=== PATIENT | male | born 1985 | race Caucasian/White ===

== ENCOUNTER 2017-12-23 18:09 | Emergency (ER) | payer OTHER ==
[~2017-12-23] VITALS: Ht 175.3 cm; Wt 145.2 kg
[~2017-12-23 18:09] MED LIST: ? BP MED; ALBU90OI INH; ANXIETY MED; Augmentin 875-1 EACH PO; BP MED; CEPH500 PO; CRUTCH3 USE; CYCL10 PO; DIPATR PO; DOXY100 PO; DULO60 PO; FENT50TP TOP; FLUO20; GABA100 PO; HYDACE25S PR; HYDACE5 PO; HYDACE5325 PO; HYDGUAL120 PO; HYDHCL25 PO; HYDMOR2 PO; HYOS.125 SL; IBU PRN ONLY; IBUP200 PO; IBUP400; IBUP800 PO; KETO10; KETO10 PO; LITH300ER PO; LORA.5 PO; LORA2 PO; MECL25 PO; MELA3 PO; METO100ER PO; METO25ER PO; METO50 PO; METR500 PO; MUSCLE RELAXER; NAPR250 PO; NAPR500; NAPR500 PO; NAPR550 PO; OMEP20ER PO; OMEP40CA12 PO; ONDA4 PO; OXYACE5T; OXYACE5T PO; OXYC10ER PO; OXYC5 PO; PARO30 PO; RANI150 PO; RISP.5 PO; RXCYCL10 PO; RXHYDGUAS PO; RXLORA1 PO; RXNAPNA550 PO; RXOXYACE PO; RXTRAM50 PO; SENNP PO; SULTRIDS PO; TOPROL PO; TRAM50 PO; TRAZ50 PO; Zofran4 MG PO; [UNRECOGNIZED DRUG - REMARK]
[2017-12-23] MEDS ORDERED: METO25ER PO (18:26)
[2017-12-23 18:50] LABS: BASOPHILS ABSOLUTE AUTO 0.02 K/mm3 (0.00-0.23); BASOPHILS PERCENT AUTO 0 % (0-2); EOSINOPHILS ABSOLUTE AUTO 0.11 K/mm3 (0.00-0.68); EOSINOPHILS PERCENT AUTO 1 % (0-6); Hematocrit 46.6 % (37.0-53.0); Hemoglobin 15.4 g/dL (13.5-17.5); IMMATURE GRAN ABSOLUTE AUTO 0.02 K/mm3 (0.00-0.10); IMMATURE GRAN PERCENT AUTO 0 % (0-1); LYMPHOCYTES ABSOLUTE AUTO 2.41 K/mm3 (0.84-5.20); LYMPHOCYTES PERCENT AUTO 27 % (21-46); MONOCYTES ABSOLUTE AUTO 0.59 K/mm3 (0.16-1.47); MONOCYTES PERCENT AUTO 7 % (4-13); Mean Corpuscular Volume 82 fL (80-100); Mean Platelet Volume 9.8 fL (9.1-12.4); NEUTROPHILS ABSOLUTE AUTO 5.71 K/mm3 (1.96-9.15); NEUTROPHILS PERCENT AUTO 65 % (41-73); Platelet Count 301 K/mm3 (150-400); RDW Standard Deviation 38.5 fL (35.1-46.3); Red Blood Cell Count 5.71 M/mm3 (4.30-5.90); White Blood Cell Count 8.86 K/mm3 (4.00-11.30)
[2017-12-23 19:14] LABS: Alanine Aminotransfer (ALT/SGP 43 U/L (12-78); Alk Phos 64 U/L (50-136); Anion Gap 10 mmol/L (6-16); Aspartate Aminotrans (AST/SGOT 39 U/L (12-37); Bilirubin, Total 0.5 mg/dL (0.1-1.0); Blood Urea Nitrogen 21 mg/dL (8-24); Bun/Creatinine Ratio 23.4 (12.0-20.0); CO2, Blood 26 mmol/L (21-32); Chloride, Blood 105 mmol/L (98-108); Globulin, Blood 4.1 g/dL (2.2-4.0); Glomerular Filtration Rate >60 (60-); Glucose, Blood 71 mg/dL (70-99); Potassium, Blood 3.8 mmol/L (3.5-5.5); Sodium, Blood 141 mmol/L (136-145); Total Protein, Blood 8.1 g/dL (6.4-8.2); Troponin I <0.015 ng/mL (0.000-0.040)
[2017-12-23] MEDS ORDERED: Robaxin500 MG PO (19:22)
[2017-12-23] MEDS ORDERED: Voltaren100 GM TOP (19:22)
[2017-12-23] MEDS ORDERED: NAPR550 PO (19:22)
[2018-06-06] MEDS ORDERED: ALBU90OI61 (09:25)
[2018-06-06] MEDS ORDERED: IBUP800 (09:26)
[2018-06-06] MEDS ORDERED: CLON1 (09:26)
[2018-06-06] MEDS ORDERED: OXYB5 PO (09:26)
[2018-06-06] MEDS ORDERED: HYDHCL25 (09:26)
[2018-06-06] MEDS ORDERED: VENL37.5ER (09:26)
[2018-06-06] MEDS ORDERED: METPRE4 (09:26)
== END 2017-12-23 19:33 | disposition home or self-care (01) ==
LOC: ER 18:09
PROVIDERS: Physician Assistant
DX: M54.6 Pain in thoracic spine (principal); Z88.5 Allergy status to narcotic agent; Z88.8 Allergy status to other drugs, medicaments and biological substances; Z79.899 Other long term (current) drug therapy; Z79.2 Long term (current) use of antibiotics; I10 Essential (primary) hypertension
CPT/HCPCS: 36415; 71046; 80053; 84484; 85025; 93005; 93010; 96374; 99284; J1885

== ENCOUNTER 2018-04-29 20:33 | Emergency (ER) | payer OTHER ==
[~2018-04-29] VITALS: Ht 175.3 cm; Wt 131.5 kg
[~2018-04-29 20:33] MED LIST changes: +Robaxin500 MG PO; +Voltaren100 GM TOP
[2018-04-29] MEDS ORDERED: Triamcinolone A15 G3 TOP (21:02)
== END 2018-04-29 21:06 | disposition home or self-care (01) ==
LOC: ER 20:33
DX: L25.9 Unspecified contact dermatitis, unspecified cause (principal); Z88.5 Allergy status to narcotic agent; Z88.8 Allergy status to other drugs, medicaments and biological substances; Z79.899 Other long term (current) drug therapy; I10 Essential (primary) hypertension
CPT/HCPCS: 99282

== ENCOUNTER 2018-06-14 08:04 | Day surgery (SDC) | payer OTHER ==
[~2018-06-14 08:04] MED LIST changes: +ALBU90OI61; +CLON1; +HYDHCL25; +IBUP800; +METPRE4; +OXYB5 PO; +Triamcinolone A15 G3 TOP; +VENL37.5ER
== END 2018-06-14 10:57 | disposition home or self-care (01) ==
LOC: ORSCSDS 08:04
PROVIDERS: Internal Medicine Gastroenterology
PROC: 0DBM8ZX Excision of Descending Colon, Via Natural or Artificial Opening Endoscopic, Diagnostic (ICD-10-PCS; principal; 2018-06-14 09:30)
PROC: 0DBE8ZX Excision of Large Intestine, Via Natural or Artificial Opening Endoscopic, Diagnostic (ICD-10-PCS; principal; 2018-06-14 09:30)
DX: K62.5 Hemorrhage of anus and rectum (principal); R19.7 Diarrhea, unspecified; D12.4 Benign neoplasm of descending colon; I10 Essential (primary) hypertension; G47.33 Obstructive sleep apnea (adult) (pediatric); J45.909 Unspecified asthma, uncomplicated; Z79.899 Other long term (current) drug therapy
CPT/HCPCS: J2370

== ENCOUNTER → 2019-05-13 | Outpatient (CLI) | payer OTHER ==
[2019-05-13 13:45] LABS: BASOPHILS ABSOLUTE AUTO 0.03 K/mm3 (0.00-0.23); BASOPHILS PERCENT AUTO 0 % (0-2); EOSINOPHILS ABSOLUTE AUTO 0.26 K/mm3 (0.00-0.68); EOSINOPHILS PERCENT AUTO 4 % (0-6); Hematocrit 45.4 % (37.0-53.0); Hemoglobin 15.3 g/dL (13.5-17.5); IMMATURE GRAN ABSOLUTE AUTO 0.02 K/mm3 (0.00-0.10); IMMATURE GRAN PERCENT AUTO 0 % (0-1); LYMPHOCYTES ABSOLUTE AUTO 2.16 K/mm3 (0.84-5.20); LYMPHOCYTES PERCENT AUTO 31 % (21-46); MONOCYTES ABSOLUTE AUTO 0.61 K/mm3 (0.16-1.47); MONOCYTES PERCENT AUTO 9 % (4-13); Mean Corpuscular HGB 28.4 pg (26.0-34.0); Mean Corpuscular HGB Conc 33.7 g/dL (31.5-36.5); Mean Corpuscular Volume 84 fL (80-100); NEUTROPHILS ABSOLUTE AUTO 3.96 K/mm3 (1.96-9.15); NEUTROPHILS PERCENT AUTO 56 % (41-73); Platelet Count 302 K/mm3 (150-400); RDW Coefficient Variation 12.6 % (11.7-14.2); RDW Standard Deviation 38.3 fL (35.1-46.3); Red Blood Cell Count 5.38 M/mm3 (4.30-5.90); White Blood Cell Count 7.04 K/mm3 (4.00-11.30)
[2019-05-13 13:55] LABS: Alanine Aminotransfer (ALT/SGP 36 U/L (12-78); Albumin, Blood 3.9 g/dL (3.4-5.0); Alk Phos 63 U/L (50-136); Anion Gap 5 mmol/L (6-16); Aspartate Aminotrans (AST/SGOT 22 U/L (12-37); Bilirubin, Total 0.4 mg/dL (0.1-1.0); Blood Urea Nitrogen 17 mg/dL (8-24); Bun/Creatinine Ratio 19.1 (12.0-20.0); CO2, Blood 28 mmol/L (21-32); Calcium, Blood 8.8 mg/dL (8.5-10.1); Chloride, Blood 108 mmol/L (98-108); Creatinine, Blood 0.89 mg/dL (0.60-1.20); Glomerular Filtration Rate >60 (60-); Glucose, Blood 94 mg/dL (70-99); Sodium, Blood 141 mmol/L (136-145); Total Protein, Blood 7.9 g/dL (6.4-8.2)
== END | disposition home or self-care (01) ==
LOC: LAB 12:50 → LAB SHORT 12:50
PROVIDERS: Physician Assistant
DX: T67.3XXA Heat exhaustion, anhydrotic, initial encounter (principal); R11.10 Vomiting, unspecified
CPT/HCPCS: 80053; 85025

== ENCOUNTER → 2019-10-13 | Outpatient (CLI) | payer OTHER | LOC: LAB 11:13 → LAB SHORT 11:13 | DX: L02.11 Cutaneous abscess of neck (principal) | CPT/HCPCS: 87070; 87075; 87077; 87186; 87205 ==

== ENCOUNTER 2021-06-25 00:06 | Emergency (ER) | payer OTHER ==
[~2021-06-25] VITALS: Ht 175.3 cm; Wt 132.9 kg
[2021-06-25] MEDS ORDERED: BUPR75 PO (00:56)
[2021-06-25] MEDS ORDERED: BUSP5 PO (00:56)
[2021-06-25 01:06] LABS: BASOPHILS ABSOLUTE AUTO 0.04 K/mm3 (0.00-0.23); BASOPHILS PERCENT AUTO 1 % (0-2); EOSINOPHILS ABSOLUTE AUTO 0.27 K/mm3 (0.00-0.68); EOSINOPHILS PERCENT AUTO 3 % (0-6); Hemoglobin 14.6 g/dL (13.5-17.5); IMMATURE GRAN ABSOLUTE AUTO 0.02 K/mm3 (0.00-0.10); IMMATURE GRAN PERCENT AUTO 0 % (0-1); LYMPHOCYTES ABSOLUTE AUTO 2.16 K/mm3 (0.84-5.20); LYMPHOCYTES PERCENT AUTO 27 % (21-46); MONOCYTES ABSOLUTE AUTO 0.74 K/mm3 (0.16-1.47); MONOCYTES PERCENT AUTO 9 % (4-13); Mean Corpuscular HGB 27.4 pg (26.0-34.0); Mean Corpuscular HGB Conc 33.2 g/dL (31.5-36.5); Mean Corpuscular Volume 83 fL (80-100); Mean Platelet Volume 10.1 fL (9.1-12.4); NEUTROPHILS ABSOLUTE AUTO 4.76 K/mm3 (1.96-9.15); NEUTROPHILS PERCENT AUTO 60 % (41-73); Platelet Count 268 K/mm3 (150-400); RDW Coefficient Variation 13.1 % (11.7-14.2); RDW Standard Deviation 39.1 fL (35.1-46.3); Red Blood Cell Count 5.33 M/mm3 (4.30-5.90); White Blood Cell Count 7.99 K/mm3 (4.00-11.30)
[2021-06-25 01:18] LABS: Alanine Aminotransfer (ALT/SGP 37 U/L (12-78); Albumin, Blood 3.7 g/dL (3.4-5.0); Alk Phos 56 U/L (50-136); Anion Gap 5 mmol/L (6-16); Aspartate Aminotrans (AST/SGOT 21 U/L (12-37); Bilirubin, Total 0.3 mg/dL (0.1-1.0); Blood Urea Nitrogen 23 mg/dL (8-24); Bun/Creatinine Ratio 21.1 (12.0-20.0); CO2, Blood 27 mmol/L (21-32); Calcium, Blood 9.1 mg/dL (8.5-10.1); Chloride, Blood 109 mmol/L (98-108); Creatinine, Blood 1.09 mg/dL (0.60-1.20); Globulin, Blood 3.8 g/dL (2.2-4.0); Glomerular Filtration Rate >60 (60-); Glucose, Blood 119 mg/dL (70-99); Potassium, Blood 3.8 mmol/L (3.5-5.5); Sodium, Blood 141 mmol/L (136-145); Total Protein, Blood 7.5 g/dL (6.4-8.2)
== END 2021-06-25 02:13 | disposition home or self-care (01) ==
LOC: ER 00:06
PROVIDERS: Emergency Medicine
DX: R10.10 Upper abdominal pain, unspecified (principal); I10 Essential (primary) hypertension; Z79.899 Other long term (current) drug therapy
CPT/HCPCS: 80053; 83690; 85025; 96374; 96376; 99283-25; A9270; J2405; J7120

== ENCOUNTER 2021-06-26 15:12 | Inpatient (IN) | payer OTHER ==
[~2021-06-26] VITALS: Ht 177.8 cm; Wt 131.9 kg
[~2021-06-26 15:12] MED LIST changes: +BUPR75 PO; +BUSP5 PO
[2021-06-26 15:35] LABS: Calcium, Ionized (POC) 1.24 mmol/L (1.10-1.46); Chloride (POC) 97 mmol/L (98-108); Creatinine (POC) 0.9 mg/dL (0.8-1.3); Glucose (ISTAT POC) 115 mg/dL (70-99); Hemoglobin (POC) 16.7 g/dL (13.5-17.5); Sodium (POC) 138 mmol/L (135-148); Total CO2 (POC) 27 mmol/L (21-32)
[2021-06-26 16:01] LABS: BASOPHILS ABSOLUTE AUTO 0.03 K/mm3 (0.00-0.23); BASOPHILS PERCENT AUTO 0 % (0-2); EOSINOPHILS ABSOLUTE AUTO 0.01 K/mm3 (0.00-0.68); EOSINOPHILS PERCENT AUTO 0 % (0-6); Hematocrit 46.4 % (37.0-53.0); Hemoglobin 15.8 g/dL (13.5-17.5); IMMATURE GRAN ABSOLUTE AUTO 0.06 K/mm3 (0.00-0.10); IMMATURE GRAN PERCENT AUTO 0 % (0-1); LYMPHOCYTES ABSOLUTE AUTO 1.52 K/mm3 (0.84-5.20); LYMPHOCYTES PERCENT AUTO 10 % (21-46); MONOCYTES ABSOLUTE AUTO 1.14 K/mm3 (0.16-1.47); MONOCYTES PERCENT AUTO 8 % (4-13); Mean Corpuscular HGB 27.6 pg (26.0-34.0); Mean Corpuscular HGB Conc 34.1 g/dL (31.5-36.5); Mean Corpuscular Volume 81 fL (80-100); Mean Platelet Volume 10.5 fL (9.1-12.4); NEUTROPHILS PERCENT AUTO 81 % (41-73); Platelet Count 286 K/mm3 (150-400); RDW Standard Deviation 38.2 fL (35.1-46.3); Red Blood Cell Count 5.72 M/mm3 (4.30-5.90); White Blood Cell Count 14.86 K/mm3 (4.00-11.30)
[2021-06-26 16:15] LABS: Albumin, Blood 3.8 g/dL (3.4-5.0); Albumin/Globulin Ratio 0.9 (0.8-1.8); Bilirubin, Direct 0.3 mg/dL (0.0-0.3); Bilirubin, Indirect 0.5 mg/dL (0.1-0.7); Bilirubin, Total 0.8 mg/dL (0.1-1.0); Globulin, Blood 4.1 g/dL (2.2-4.0); Total Protein, Blood 7.9 g/dL (6.4-8.2)
--- NOTE | 2021-06-26 20:43 | NUR ---
PT TRANSFERED FROM ER VIA WHEELCHAIR AT THIS TIME. A&O X4. ADMITTED FOR GERALDINE. PT INDEPENDENT IN ROOM. C/O ABD PAIN. DENIES N/V. WILL KEEP PT NPO PER ORDERS AND MEDICATE PER EMAR.
--- NOTE | 2021-06-27 07:27 | NUR ---
SHIFT SUMMARY: PT HAS BEEN STABLE SINCE ADMIT. PAIN BEING MANAGED WITH 50MCG OF FENTANYL PER EMAR. PT HAS BEEN NPO SINCE MIDNIGHT. IVF INFUSING PER ORDERS. PT DENIES N/V. INDEPENDENT IN ROOM AND VOIDING WELL. MED REC COMPELTE AND ALL HOME MEDS ORDERED.
--- NOTE | 2021-06-27 15:01 | NUR ---
TO DAY SURGERY VIA RGARIBALDI
--- NOTE | 2021-06-27 17:47 | NUR ---
REMAINS IN OR AT THIS TIME
--- NOTE | 2021-06-27 18:37 | NUR ---
returned to room, abd with gauze x4 sites, clean dry and intact. pt to restroom with standby assist, voided clear yellow urine. denies nausea. juarez po fluids
--- NOTE | 2021-06-28 05:18 | NUR ---
JS IS A&OX4. VSS, NO ACUTE EVENTS OVERNIGHT. HE IS INDEPENDENT IN THE ROOM, TOLERATING PO INTAKE WELL, AND REPORTS HAVING MULTIPLE LOOSE STOOLS OVERNIGHT. LAP SITES TO ABDOMEN C/D&I. HE REPORTS ADEQUATE PAIN CONTROL WITH ONE TABLET OF NORCO. HE IS LYING IN BED WITH THE CALL LIGHT IN REACH. WILL REPORT TO DAY SHIFT RN.
[2021-06-28 05:47] LABS: BASOPHILS ABSOLUTE AUTO 0.02 K/mm3 (0.00-0.23); BASOPHILS PERCENT AUTO 0 % (0-2); EOSINOPHILS PERCENT AUTO 0 % (0-6); Hematocrit 42.3 % (37.0-53.0); Hemoglobin 13.9 g/dL (13.5-17.5); IMMATURE GRAN ABSOLUTE AUTO 0.07 K/mm3 (0.00-0.10); IMMATURE GRAN PERCENT AUTO 1 % (0-1); LYMPHOCYTES ABSOLUTE AUTO 0.89 K/mm3 (0.84-5.20); LYMPHOCYTES PERCENT AUTO 6 % (21-46); MONOCYTES PERCENT AUTO 8 % (4-13); Mean Corpuscular HGB 27.7 pg (26.0-34.0); Mean Corpuscular HGB Conc 32.9 g/dL (31.5-36.5); Mean Corpuscular Volume 84 fL (80-100); Mean Platelet Volume 10.2 fL (9.1-12.4); NEUTROPHILS PERCENT AUTO 86 % (41-73); Platelet Count 204 K/mm3 (150-400); RDW Coefficient Variation 13.3 % (11.7-14.2); RDW Standard Deviation 41.2 fL (35.1-46.3); Red Blood Cell Count 5.02 M/mm3 (4.30-5.90); White Blood Cell Count 14.58 K/mm3 (4.00-11.30)
[2021-06-28 06:14] LABS: Alanine Aminotransfer (ALT/SGP 35 U/L (12-78); Albumin, Blood 2.6 g/dL (3.4-5.0); Albumin/Globulin Ratio 0.7 (0.8-1.8); Alk Phos 58 U/L (50-136); Anion Gap 6 mmol/L (6-16); Aspartate Aminotrans (AST/SGOT 24 U/L (12-37); Bilirubin, Total 0.9 mg/dL (0.1-1.0); Blood Urea Nitrogen 17 mg/dL (8-24); Bun/Creatinine Ratio 18.6 (12.0-20.0); CO2, Blood 28 mmol/L (21-32); Calcium, Blood 7.3 mg/dL (8.5-10.1); Chloride, Blood 104 mmol/L (98-108); Creatinine, Blood 0.91 mg/dL (0.60-1.20); Globulin, Blood 3.9 g/dL (2.2-4.0); Glomerular Filtration Rate >60 (60-); Glucose, Blood 122 mg/dL (70-99); Potassium, Blood 3.5 mmol/L (3.5-5.5); Sodium, Blood 138 mmol/L (136-145); Total Protein, Blood 6.5 g/dL (6.4-8.2)
[2021-06-28] MEDS ORDERED: HYDR1TAB94 PO (11:22)
--- NOTE | 2021-06-28 13:28 | NUR ---
DISCHARGE PT A/O X4, IND IN ROOM. PT ADVANCED TO REGULAR/GLUTEN FREE DIET FOR LUNCH AND TOLERATED WELL. DENIES N/V, REPORTS PASSING FLATUS AND BM'S. PAIN MANAGED ON PO PAIN MED PER ORDERS. DC INSTRUCTIONS REVIEWED WITH PT; REPORTS UNDERSTANDING. INSTRUCTIONS AND SCRIPTS SENT WITH PT. PERSONAL BELONGINGS RETURNED. IV DC'D WNL. PT ESCORTED TO VEHICLE VIA WHEELCHAIR.
--- NOTE | 2021-06-30 10:27 | NUR ---
06/30/21 1027 Anisha Brown VERIFICATIONS: EDIT CHART.
== END 2021-06-28 13:30 | disposition home or self-care (01) | DRG 419 ==
LOC: ER 15:12 → SURS 19:38 → ER 19:38 → SURS 19:38 → ER 06-28 09:16 → SURS 06-28 09:16
PROVIDERS: Emergency Medicine; Surgery; ADMIT Surgery
PROC: 0FT44ZZ Resection of Gallbladder, Percutaneous Endoscopic Approach (ICD-10-PCS; principal; 2021-06-28)
PROC: BF03YZZ Plain Radiography of Gallbladder and Bile Ducts using Other Contrast (ICD-10-PCS; principal; 2021-06-28)
DX: K80.00 Calculus of gallbladder with acute cholecystitis without obstruction (principal); K82.A1 Gangrene of gallbladder in cholecystitis; I10 Essential (primary) hypertension; K76.0 Fatty (change of) liver, not elsewhere classified; Z88.5 Allergy status to narcotic agent; Z88.8 Allergy status to other drugs, medicaments and biological substances
CPT/HCPCS: 36415; 74300; 76705; 80047; 80053; 80076; 83690; 85014; 85025; 88304; 94660; 94762; 96365; 96375; 99285-25; A9270; C1729; G0378; J1100; J1885; J2250; J2405; J2543; J2704; J3010; J7030; J7120

== ENCOUNTER 2021-06-29 18:50 | Inpatient (IN) | payer OTHER ==
[~2021-06-29] VITALS: Ht 175.3 cm; Wt 127.8 kg
[~2021-06-29 18:50] MED LIST changes: +HYDR1TAB94 PO
[2021-06-29 19:34] LABS: BASOPHILS ABSOLUTE AUTO 0.02 K/mm3 (0.00-0.23); BASOPHILS PERCENT AUTO 0 % (0-2); EOSINOPHILS ABSOLUTE AUTO 0.08 K/mm3 (0.00-0.68); EOSINOPHILS PERCENT AUTO 1 % (0-6); Hematocrit 42.2 % (37.0-53.0); Hemoglobin 14.2 g/dL (13.5-17.5); IMMATURE GRAN ABSOLUTE AUTO 0.03 K/mm3 (0.00-0.10); IMMATURE GRAN PERCENT AUTO 0 % (0-1); LYMPHOCYTES ABSOLUTE AUTO 1.72 K/mm3 (0.84-5.20); LYMPHOCYTES PERCENT AUTO 19 % (21-46); MONOCYTES ABSOLUTE AUTO 0.72 K/mm3 (0.16-1.47); MONOCYTES PERCENT AUTO 8 % (4-13); Mean Corpuscular HGB 27.7 pg (26.0-34.0); Mean Corpuscular HGB Conc 33.6 g/dL (31.5-36.5); Mean Corpuscular Volume 82 fL (80-100); Mean Platelet Volume 10.2 fL (9.1-12.4); NEUTROPHILS ABSOLUTE AUTO 6.68 K/mm3 (1.96-9.15); NEUTROPHILS PERCENT AUTO 72 % (41-73); Platelet Count 295 K/mm3 (150-400); RDW Coefficient Variation 13.2 % (11.7-14.2); RDW Standard Deviation 39.6 fL (35.1-46.3); Red Blood Cell Count 5.13 M/mm3 (4.30-5.90); White Blood Cell Count 9.25 K/mm3 (4.00-11.30)
[2021-06-29 19:51] LABS: Alanine Aminotransfer (ALT/SGP 48 U/L (12-78); Albumin, Blood 2.9 g/dL (3.4-5.0); Albumin/Globulin Ratio 0.6 (0.8-1.8); Alk Phos 61 U/L (50-136); Anion Gap 8 mmol/L (6-16); Aspartate Aminotrans (AST/SGOT 30 U/L (12-37); Bilirubin, Total 0.5 mg/dL (0.1-1.0); Blood Urea Nitrogen 18 mg/dL (8-24); Bun/Creatinine Ratio 20.3 (12.0-20.0); CO2, Blood 27 mmol/L (21-32); Calcium, Blood 8.5 mg/dL (8.5-10.1); Chloride, Blood 103 mmol/L (98-108); Creatinine, Blood 0.89 mg/dL (0.60-1.20); Globulin, Blood 4.5 g/dL (2.2-4.0); Glomerular Filtration Rate >60 (60-); Glucose, Blood 95 mg/dL (70-99); Potassium, Blood 3.2 mmol/L (3.5-5.5); Sodium, Blood 138 mmol/L (136-145); Total Protein, Blood 7.4 g/dL (6.4-8.2)
[2021-06-29 23:42] LABS: SARS-Cov-2 (COVID-19) PCR, MMC NEGATIVE (NEGATIVE)
--- NOTE | 2021-06-30 01:39 | NUR ---
PATIENT ADMIT 0045 PT BROUGHT BACK TO [facility] FROM ED VIA WHEELCHAIR.PT ORIENTED TO DEPARTMENT AND ROOM, SELF AMBULATED FROM CHAIR TO BATHROOM AND BED. VSS, BED LOW AND IN LOCKED POSITION,SIDE RAILS UP, CALL LIGHT WITHIN REACH. INCISION SITES ON ABDOMEN X4 DRY AND WITH INTACT STERIS. WILL ALLOW PT TO REST AND WILL CONTINUE TO MONITOR.
--- NOTE | 2021-06-30 05:38 | NUR ---
PT RESTING IN BED, VSS, HE REMAINED NPO THORUGHOUT THE EVENING. MOIST MOUTH SPONGE OFFERED IF NEEDED. PAIN WAS TOLERABLE FOR HIM. NO COMPLAINTS OF NAUSEA AT THIS TIME. WILL CONTINUE TO MONITOR, AND AT SHIFT CHANGE, WILL REPORT TO DAY SHIFT RN.
[2021-06-30 06:54] LABS: BASOPHILS ABSOLUTE AUTO 0.01 K/mm3 (0.00-0.23); BASOPHILS PERCENT AUTO 0 % (0-2); EOSINOPHILS ABSOLUTE AUTO 0.15 K/mm3 (0.00-0.68); EOSINOPHILS PERCENT AUTO 2 % (0-6); Hematocrit 37.5 % (37.0-53.0); Hemoglobin 12.6 g/dL (13.5-17.5); IMMATURE GRAN ABSOLUTE AUTO 0.01 K/mm3 (0.00-0.10); IMMATURE GRAN PERCENT AUTO 0 % (0-1); LYMPHOCYTES PERCENT AUTO 27 % (21-46); MONOCYTES ABSOLUTE AUTO 0.58 K/mm3 (0.16-1.47); MONOCYTES PERCENT AUTO 8 % (4-13); Mean Corpuscular HGB 28.1 pg (26.0-34.0); Mean Corpuscular HGB Conc 33.6 g/dL (31.5-36.5); Mean Corpuscular Volume 84 fL (80-100); Mean Platelet Volume 9.8 fL (9.1-12.4); NEUTROPHILS ABSOLUTE AUTO 4.33 K/mm3 (1.96-9.15); NEUTROPHILS PERCENT AUTO 62 % (41-73); Platelet Count 254 K/mm3 (150-400); RDW Coefficient Variation 13.3 % (11.7-14.2); RDW Standard Deviation 40.8 fL (35.1-46.3); Red Blood Cell Count 4.49 M/mm3 (4.30-5.90); White Blood Cell Count 6.98 K/mm3 (4.00-11.30)
--- NOTE | 2021-06-30 07:03 | NUR ---
PT WITH C/O PAIN 05/10 IN THE ABDOMEN. NO NAUSEA. I TEXT , HAVE NOT GOTTEN AN ORDER YET, NOTIFIED HIM PT DOES NOT WANT DILAUDID. WE ARE AT SHIFT CHANGE, AND I GAVE REPORT TO RAFAEL GOODEN.NITA. I NOTIFIED DR OF CHANGE OF CARE AND REPORTED TO DAY SHIFT.
[2021-06-30 07:11] LABS: Anion Gap 4 mmol/L (6-16); Blood Urea Nitrogen 16 mg/dL (8-24); Bun/Creatinine Ratio 20.1 (12.0-20.0); CO2, Blood 30 mmol/L (21-32); Calcium, Blood 7.8 mg/dL (8.5-10.1); Chloride, Blood 104 mmol/L (98-108); Glomerular Filtration Rate >60 (60-); Glucose, Blood 89 mg/dL (70-99); Sodium, Blood 138 mmol/L (136-145)
--- NOTE | 2021-06-30 09:19 | NUR ---
JOSE ELIAS LR 1,000ML BAG. PT STATES THAT THE ZOFRAN HELPED WITH HIS NAUSEA. PT STILL AWARE PENDING SURGICAL CONSULT.
--- NOTE | 2021-06-30 11:39 | NUR ---
OFFERED PT NORCO 5/325MG ORDERED PER DR PAIN IS 06/10. PT DECLINED AT THIS TIME.
--- NOTE | 2021-07-01 05:01 | NUR ---
PT SLEPT WELL AFTER PAIN MEDICATION AND EYE MASK PROVIDED, HOME MEDS WERE ORDERED BY PIECE WORK CHECKER GENERAL SURGEON GIVEN PO. PT DID NOT HAVE C/O NAUSEA, TOOK PO FLUIDS WELL, URINATING WELL, IV DRESSING CHANGED, IV NACL LOCKED. BOWEL SOUNDS AUSCULTATED LOWER QUADRANTS BUT NOT UPPER. NO ORDERS FROM ADMITTING SURGEON DR. CHIN.WILL AWAIT MORNING LAB RESULTS ON K+ AND CONSULT WITH IF IV FLUIDS LR STILL NEEDED.NOTE:PT RECIEVED POTASSIUM X2 FOR LEVEL OF 3.0 06/30 WILL REPORT TO DAY SHIFT RN AND AWAIT FURTHER ORDERS FROM .
[2021-07-01 06:54] LABS: BASOPHILS ABSOLUTE AUTO 0.02 K/mm3 (0.00-0.23); BASOPHILS PERCENT AUTO 0 % (0-2); EOSINOPHILS ABSOLUTE AUTO 0.27 K/mm3 (0.00-0.68); EOSINOPHILS PERCENT AUTO 4 % (0-6); Hematocrit 40.3 % (37.0-53.0); Hemoglobin 13.6 g/dL (13.5-17.5); IMMATURE GRAN ABSOLUTE AUTO 0.03 K/mm3 (0.00-0.10); IMMATURE GRAN PERCENT AUTO 0 % (0-1); LYMPHOCYTES ABSOLUTE AUTO 1.39 K/mm3 (0.84-5.20); LYMPHOCYTES PERCENT AUTO 20 % (21-46); MONOCYTES ABSOLUTE AUTO 0.55 K/mm3 (0.16-1.47); MONOCYTES PERCENT AUTO 8 % (4-13); Mean Corpuscular HGB 27.8 pg (26.0-34.0); Mean Corpuscular HGB Conc 33.7 g/dL (31.5-36.5); Mean Corpuscular Volume 82 fL (80-100); Mean Platelet Volume 9.7 fL (9.1-12.4); NEUTROPHILS ABSOLUTE AUTO 4.58 K/mm3 (1.96-9.15); NEUTROPHILS PERCENT AUTO 67 % (41-73); Platelet Count 290 K/mm3 (150-400); RDW Coefficient Variation 13.2 % (11.7-14.2); RDW Standard Deviation 39.6 fL (35.1-46.3); White Blood Cell Count 6.84 K/mm3 (4.00-11.30)
[2021-07-01 07:12] LABS: Anion Gap 6 mmol/L (6-16); Blood Urea Nitrogen 8 mg/dL (8-24); CO2, Blood 30 mmol/L (21-32); Calcium, Blood 7.9 mg/dL (8.5-10.1); Chloride, Blood 101 mmol/L (98-108); Creatinine, Blood 0.73 mg/dL (0.60-1.20); Glomerular Filtration Rate >60 (60-); Glucose, Blood 88 mg/dL (70-99); Potassium, Blood 3.4 mmol/L (3.5-5.5); Sodium, Blood 137 mmol/L (136-145)
--- NOTE | 2021-07-01 10:33 | NUR ---
PT UP AMBULATING THIS AM IN ATTEMPTS TO MOVE BOWELS. PT TOLERATED WELL, BUT COMPLAINED OF PAIN AND NAUSEA POST AMBULATION. PT MEDICATED FOR BOTH, AND STS BOTH PAIN & NAUSEA RESOLVED AFTER MEDICATING. CLEAR LIQUIDS PROVIDED, PT DENIES NEEDS AT THIS TIME. CALL LIGHT WITHIN REACH, ON PHONE.
--- NOTE | 2021-07-01 13:32 | NUR ---
PT AMBULATING AROUND FACILITY WITHOUT DIFFICULTY IN ATTEMPTS TO PASS FLATUS. DR. CHIN TO ROOM TO SPEAK WITH PT. WILL CONTINUE ON CLEAR LIQUID DIET & LR CONTINUOUSLY UNTIL PT IS ABLE TO PASS FLATUS. PT VERBALIZES UNDERSTANDING AND STS WANTS TO BE SAFE PRIOR TO GOING HOME. CALL LIGHT WITHIN REACH, DENIES NEEDS AT THIS TIME.
--- NOTE | 2021-07-01 14:39 | NUR ---
PT AMBULATED BY SELF TO RESTROOM.
--- NOTE | 2021-07-01 15:11 | NUR ---
PT HAD UNMEASURED BOWEL MOVEMENT IN RESTROOM. PT STS VERY LOOSE, BROWN/GREEN WITH SEDIMENT. PT STS HE PASSED SOME FLATUS WHILE STRAINING. DR. CHIN NOTIFIED. DR. MILLAN BM IS PROGRESS BUT PT NEEDS TO PASS FLATUS ALONE PRIOR TO BEING DISCHARGE. PT UPDATED. PT RESTING IN ROOM, LIGHTS OFF REQUESTED.
--- NOTE | 2021-07-01 18:33 | NUR ---
SHIFT SUMMARY POD4 OF LOI CHANDLER. PT KIND AND PLEASANT, TOLERATING PO FLUIDS WELL. CLEAR LIQUID DIET TO CONTINUE UNTIL HE IS ABLE TO PASS FLATUS. PT AMBULATES TO ENCOURAGE MOTILITY. AMBULATES TO RESTROOM INDEPENDENTLY. ONE LOOSE BOWEL MOVEMENT THIS AFTERNOON, DR. ALCANTARA. PAIN PRIMARILY R/T K-CHL INFUSIONS. CONTROLLED WITH ORDERED DILAUDID. PT STS NORCO DOES NOT WORK HE USED IT POST-OP AT HOME. 4 OP-SITES DRY & INTACT, SCANT DRIED BLOOD UNDER STERI-STRIPS. PT DENIES PAIN OR TENDERNESS TO ABD. PT EAGER TO GO HOME, BUT VERBALIZES DESIRE TO STAY UNTIL HEALTHY.
--- NOTE | 2021-07-01 23:24 | NUR ---
PT CONCERNED THIS EVENING ABOUT HIS CHILDCARE SITUATION AT HOME. HIS SPOUSE WORKS OPPOSITE HOURS OF HIM AND THEIR SHIPPING ROOM SUPERVISOR FOR THEIR YOUNG DAUGHTER IS TAKEN CARE OF. WITH HIM HERE IN THE HOSPITAL, HIS HAD TO LEAVE THEIR DAUGHTER WITH A FAMILY MEMBER WHO PROVED TO BE NEGLECTFUL. I EMPATHIZED AND EXPLAINED WHAT WAS NEEDED TO HAPPEN BEFORE POSSIBLE D/C. I EXPLAINED THE POSSIBLE CONSEQUENCES OF LEAVING AMA. PT WAS AGREEABLE AND UNDERSTANDING AND JUST WANTS TO GET BETTER. I TOLD HIM WE COULD AMBULATE MORE TONIGHT IF HE COULDNT SLEEP, ENCOURAGED PO FLUIDS, AND TRIED TO REASSURE HIM.
--- NOTE | 2021-07-02 05:52 | NUR ---
PT IN BED MOST OF THE NIGHT. GOT UP AND AMBULATED TO THE BATHROOM ONCE. PT STATED HE WAS TIRED. LR INFUSING, VSS., NO AIR PASSED PER PT, ABDOMEN SOFT, NO BOWEL SOUNDS AUSCULTATED,INCISION SITES X4, STERIS INTACT, NO DRAINAGE OR OOZING.PT WITH COMPLAINTS OF NAUSEA, FELT SICK AND WANTED TO VOMIT.MEDICATED HIM WITH IV ZOFRAN. PT FELT BETTER SHORTLY AFTER. WILL OFFER SUPPORT, CONTINUE TO MONITOR, AND REPORT TO MD AND DAY SHIFT RN.
[2021-07-02 06:18] LABS: BASOPHILS ABSOLUTE AUTO 0.02 K/mm3 (0.00-0.23); BASOPHILS PERCENT AUTO 0 % (0-2); EOSINOPHILS ABSOLUTE AUTO 0.35 K/mm3 (0.00-0.68); EOSINOPHILS PERCENT AUTO 4 % (0-6); Hematocrit 40.3 % (37.0-53.0); Hemoglobin 13.7 g/dL (13.5-17.5); IMMATURE GRAN ABSOLUTE AUTO 0.03 K/mm3 (0.00-0.10); IMMATURE GRAN PERCENT AUTO 0 % (0-1); LYMPHOCYTES ABSOLUTE AUTO 1.35 K/mm3 (0.84-5.20); LYMPHOCYTES PERCENT AUTO 17 % (21-46); MONOCYTES ABSOLUTE AUTO 0.61 K/mm3 (0.16-1.47); MONOCYTES PERCENT AUTO 8 % (4-13); Mean Corpuscular Volume 82 fL (80-100); Mean Platelet Volume 9.7 fL (9.1-12.4); NEUTROPHILS ABSOLUTE AUTO 5.54 K/mm3 (1.96-9.15); NEUTROPHILS PERCENT AUTO 70 % (41-73); Platelet Count 309 K/mm3 (150-400); RDW Coefficient Variation 13.2 % (11.7-14.2); RDW Standard Deviation 39.5 fL (35.1-46.3)
[2021-07-02 06:34] LABS: Anion Gap 4 mmol/L (6-16); Blood Urea Nitrogen 9 mg/dL (8-24); Bun/Creatinine Ratio 10.4 (12.0-20.0); CO2, Blood 31 mmol/L (21-32); Calcium, Blood 8.1 mg/dL (8.5-10.1); Chloride, Blood 102 mmol/L (98-108); Creatinine, Blood 0.87 mg/dL (0.60-1.20); Glomerular Filtration Rate >60 (60-); Glucose, Blood 98 mg/dL (70-99); Potassium, Blood 3.8 mmol/L (3.5-5.5); Sodium, Blood 137 mmol/L (136-145)
--- NOTE | 2021-07-02 06:51 | NUR ---
CONSULTED WITH REGARDING PTS SYMPTOMS AND CONCERNS. NO FURTHER ORDERS GIVEN AT THIS TIME. HE ADVISES PT BE MONITORED UNTIL HE PASSES FLATUS. PT NOTIFIED AND IS AGREEABLE. WILL REPORT TO NELLY MOYA AND SHE WILL ASSUME CARE.
--- NOTE | 2021-07-02 10:21 | NUR ---
PT RESTING COMFORTABLY IN BED, LINENS CHANGED. PT AMBULATING PERIODICALLY, INDEPENDENTLY. DR. CHIN IN TO SEE PT, WILL CONTINUE COURSE OF PLAN. PT WILL BE ELIGIBLE FOR D/C POST FLATUS. PT IN AGREEMENT TO STAY, BUT EAGER TO GO HOME. PT DECLINED SHOWER OFFER. WATCHING [employer] ON PHONE, CALL LIGHT WITHIN REACH.
--- NOTE | 2021-07-02 12:00 | NUR ---
IV DRESSING REPLACED, IV SITE WNL.
--- NOTE | 2021-07-02 17:33 | NUR ---
SHIFT SUMMARY POD5 LAP GERALDINE. PT EAGER TO GO HOME, VERBALIZES FRUSTRATION IN INABILITY TO PASS FLATUS, BUT IN AGREEMENT TO STAY. PT AMBULATING THROUGHOUT SHIFT. PT HAS ZERO PAIN TODAY, TOLERATING PO INTAKE MODERATELY. PT DECLINED SHOWER TODAY. BIPAP ORDERED & PLACED IN ROOM. UNSUCCESSFUL ATTEMPT AT REACHING DR. HOLDER FOR REPLACEMENT BIPAP FOR HOME. DISCHARGE PLANNERS TO ASSIST IN FACILITATING REPLACEMENT.
--- NOTE | 2021-07-02 22:52 | NUR ---
PT PREPARED FOR SLEEP AT APPROXIMATELY 2100 IV BEGAN TO LEAK. ATTEMPTED TO TIGHTEN, CLEAN AND REDRESS IV SITE. IV CONTINUED TO LEAK; RN DC'D IV AND RESTARTED IV ACCESS IN RIGHT FOREARM 20G PT TOLERATED WELL. PT AMBULATED TO THE RESTROOM. RN OFFERRED TOOTHBRUSH, WASHCLOTH, OR SUPPLIES TO FACILITATE BEDTIME ROUTINE. PO FLUIDS AT BEDSIDE. CALL LIGHT IN REACH. BED IS IN THE LOWEST, LOCKED POSITION. NO NEEDS AT THIS TIME. WARM BLANKET PROVIDED.
--- NOTE | 2021-07-03 02:41 | NUR ---
PT APPEARS TO BE SLEEPING PT IS RESTING IN BED WITH EYES CLOSED. PT IS CURRENTLY WEARING HIS BIPAP. WARM BLANKETS AND PILLOWS FOR COMFORT. PO FLUIDS AT BEDSIDE. PERSONAL PHONE AND TABLET AT BEDSIDE. CALL LIGHT IN REACH. BED IS IN THE LOWEST, LOCKED POSITION.
--- NOTE | 2021-07-03 04:45 | NUR ---
PT COMPLAINED OF PAIN 8/10 IN THE ABDOMEN. RN TREATED WITH PO PAIN MEDICATION PER DR'S ORDERS. SOFT BOWEL TONES IN BOTH LOWER QUADRANTS UPON AUSCULTATION. PT DENIED THE NEED FOR THE RESTROOM AT THIS TIME. RN BROUGHT IN HOT TEA AND ICE WATER PER PT'S REQUEST. CALL LIGHT IN REACH. BED IS IN THE LOWEST, LOCKED POSITION.
--- NOTE | 2021-07-03 05:36 | NUR ---
NAUSEA PT COMPLAINED OF NAUSEA, RN TREATED WITH IV ANTINAUSEA MEDICATION (SEE EMAR). PT STATES HIS NAUSEA HAS NOW RESOLVED. PT IS SIPPING ON WARM TEA. PT AMBULATED TO THE RESTROOM. PT ABLE TO VOID.
--- NOTE | 2021-07-03 06:19 | NUR ---
END OF SHIFT SUMMARY PT SLEPT THROUGHOUT THE NIGHT. PT OCCASIONALLY COMPLAINED OF PAIN AND NAUSEA. RN TREATED WITH PRN MEDICATION PER DR'S ORDERS. PT WORE HIS BIPAP MACHINE WHILE HE SLEPT. PT HAS AMBULATED TO THE RESTROOM SEVERAL TIMES. PT STATES HE HAS BEEN UNABLE TO PASS GAS YET. SOFT LOWER ABDOMINAL BOWEL TONES PER AUSCULTATION AT 0530. PT WAS ABLE TO TOLERATE WARM TEA AND WATER. VSS. CALL LIGHT IN REACH. BED IS IN THE LOWEST, LOCKED POSITION.
--- NOTE | 2021-07-03 09:12 | NUR ---
PT AMBULATES WELL TO BATHROOM INDEPENDENTLY. PT UP WATCHING TV AT 0915. CALL LIGHT WITHIN REACH. PT DECLINES PAIN MED AT THIS TIME. WILL CONTINUE TO MONITOR.
[2021-07-03 10:00] LABS: BASOPHILS ABSOLUTE AUTO 0.04 K/mm3 (0.00-0.23); BASOPHILS PERCENT AUTO 1 % (0-2); EOSINOPHILS ABSOLUTE AUTO 0.17 K/mm3 (0.00-0.68); EOSINOPHILS PERCENT AUTO 2 % (0-6); Hematocrit 42.7 % (37.0-53.0); Hemoglobin 14.5 g/dL (13.5-17.5); IMMATURE GRAN ABSOLUTE AUTO 0.02 K/mm3 (0.00-0.10); IMMATURE GRAN PERCENT AUTO 0 % (0-1); LYMPHOCYTES ABSOLUTE AUTO 1.56 K/mm3 (0.84-5.20); LYMPHOCYTES PERCENT AUTO 19 % (21-46); MONOCYTES ABSOLUTE AUTO 0.47 K/mm3 (0.16-1.47); MONOCYTES PERCENT AUTO 6 % (4-13); Mean Corpuscular HGB 27.7 pg (26.0-34.0); Mean Corpuscular Volume 82 fL (80-100); Mean Platelet Volume 9.7 fL (9.1-12.4); NEUTROPHILS ABSOLUTE AUTO 6.16 K/mm3 (1.96-9.15); NEUTROPHILS PERCENT AUTO 73 % (41-73); Platelet Count 354 K/mm3 (150-400); RDW Coefficient Variation 13.1 % (11.7-14.2); RDW Standard Deviation 38.7 fL (35.1-46.3); Red Blood Cell Count 5.23 M/mm3 (4.30-5.90); White Blood Cell Count 8.42 K/mm3 (4.00-11.30)
--- NOTE | 2021-07-03 10:38 | NUR ---
DR. CHIN TO VISIT PT, HOWEVER PT IS NOT IN ROOM AT THIS TIME. DR. CHIN VERBALLY GAVE DAFNE MOYA ORDERS TO LET PT TRY A FEW BITES OF REGULAR FOOD AND SEE IF THAT WILL STIMULATE PT'S ABD MOTILITY. DR. CHIN STATES IF PT GETS NAUSEUS, WILL CONITNUE WITH CLEAR DIET. DR. CHIN WOULD LIKE PT TO HAVE FLATULENCE BEFORE GIVING FURTHER ORDERS.
--- NOTE | 2021-07-03 12:18 | NUR ---
1215 PT TAKING SMALL AMOUNTS OF SOLIDS WITH NO NAUSEA, PT REATES TOLERATING WELL.
--- NOTE | 2021-07-03 13:26 | NUR ---
PT FINISHED EATING LUNCH WITH SOLID FOOD. RN CHECKED IN WITH PT TO SEE HOW HE FEELS. PT STATES HE FEELS GOOD AND A LITTLE BIT STRONGER AFTER EATING. PT HAS BOWEL TONES ON RUQ, LUQ, AND LLQ. NO FLATULENCE AT THIS TIME PER PT HOWEVER, PT STATES HE HAD A BOWEL MOVEMENT, LIQUID CONSISTENCY AROUND 1245 TODAY. PT STATES PAIN IS ALSO GETTING BETTER. DR. CHIN AWARE AND DOCTOR ORDERED REGALN 10MG IV TIMES ONE NOW TO HELP WITH ABD MOTILITY AND TO CALL DOCTOR BACK BEFORE DINNER TIME TODAY FOR UPDATE. WILL CONTINUE TO MONITOR PT.
--- NOTE | 2021-07-03 14:21 | NUR ---
PT STATED THAT HE HAD A SMALL FLATUS. RN CALLED OUT TO DR. CHIN AND RN WAITING FOR A CALL BACK FROM DR. CHIN FOR FURTHER ORDERS. PT IN THE ROOM SITTING ON THE EDGE OF THE BED. PT AWAKE, AND ALERT. PT C/O OF CHILLS, TEMP TAKEN WITH 97.3F. WARM BLANKET GIVEN TO PT. WILL CONTINUE TO MOITOR. CALL LIGHT WITHIN REACH.
--- NOTE | 2021-07-03 16:06 | NUR ---
PT RESTING IN THE ROOM. CALL LIGHT WITHIN REACH. WILL CONTINUE TO MONITOR.
--- NOTE | 2021-07-03 16:15 | NUR ---
PT REPORTED TO RN THAT HE IS PASSING MORE GAS TODAY. PT ALSO STATES HIS PAIN FROM 8/10 THIS MORNING IS GONE. PT DENIES ANY PAIN AT THIS TIME. RN CALLED DR. CHIN AND PER DR. CHIN, PT WILL CHANGE DIET TO REGULAR DIET THIS EVENING AND IF PT TOLERATES HIS DIET, DR CHIN WILL BE NOTIFIED FOR FURTHER INSTRUCTIONS.
--- NOTE | 2021-07-03 18:18 | NUR ---
PT AWAKE, ALERT. PT STATES HE HAS BEEN PASSING MORE GAS TODAY AND PT DENIES ANY PAIN AT THIS TIME. PT ABLE TO TOLERATE REGULAR DIET FOR HIS DINNER WITH NO C/O OF NAUSEA. PT STATES HE STILL GETS CHILLS AT TIMES. CALL OUT TO DR. CHIN AND RN AWAITING FOR A CALL BACK FOR FURTHER ORDERS.
--- NOTE | 2021-07-03 19:24 | NUR ---
REPORT GIVEN TO DIVYA MOYA. PT AWAKE, ALERT, PT STATES HE IS READY TO GO HOME AND HAS BEEN PASSING GAS ALL EVENING. PT TOLERATED REGULAR DIET THIS EVENING WITH NO PAIN OR NAUSEA/VOMITING. PT AMBULATES WELL WITH NO C/O OF PAIN
--- NOTE | 2021-07-03 19:54 | NUR ---
PT READY FOR DISCHARGE PT HAS DISCHARGE ORDERS PER DR CHIN. PT DENIES PAIN AND NAUSEA. PT SENT HOME WITH PERSONAL BELONGINGS AND DISCHARGE TEACHING. IV DC'D. PT TAKEN OUT TO FAMILY VIA WHEELCHAIR. PT VOICED SATISFACTION WITH THE CARE AT [facility].
== END 2021-07-03 19:46 | disposition home or self-care (01) | DRG 389 ==
LOC: ER 18:50 → ORSCIP 23:39
PROVIDERS: Physician Assistant; ADMIT Surgery
DX: K56.7 Ileus, unspecified (principal); Z68.41 Body mass index [BMI] 40.0-44.9, adult; Z20.822 Contact with and (suspected) exposure to COVID-19; I10 Essential (primary) hypertension; G47.33 Obstructive sleep apnea (adult) (pediatric); E66.01 Morbid (severe) obesity due to excess calories; F32.9 Major depressive disorder, single episode, unspecified; Z88.8 Allergy status to other drugs, medicaments and biological substances; Z79.899 Other long term (current) drug therapy; Z88.5 Allergy status to narcotic agent; Z90.49 Acquired absence of other specified parts of digestive tract; Z98.890 Other specified postprocedural states
CPT/HCPCS: 36415; 74177; 80048; 80053; 83605; 83690; 85025; 96374-59; 96375; 99284-25; A9270; J1170; J1650; J1885; J2405; J2543; J2765; J3480; J7030; J7120; Q9967; U0004

== ENCOUNTER → 2024-06-12 | Outpatient (CLI) | payer OTHER ==
[2024-06-12 19:20] LABS: Source, Urine Clean Catch
[2024-06-12 19:34] LABS: Bacteria Not Seen /hpf; Red Blood Cells, Urine Not Seen /hpf (0-2); Squamous Epithelial Cells Few /hpf (Few); White Blood Cells, Urine 0-2 /hpf (0-5)
== END ==
LOC: LAB SHORT 19:18 → LAB 19:18
PROVIDERS: Physician Assistant Medical
DX: R30.0 Dysuria (principal)
CPT/HCPCS: 81015

== ENCOUNTER → 2025-03-20 | Outpatient (CLI) | payer OTHER | LOC: LAB 08:31 → LAB SHORT 08:31 | DX: R22.2 Localized swelling, mass and lump, trunk (principal) | CPT/HCPCS: 88304 ==